=== PATIENT | female | born 1990 | race African-American/Black ===

== ENCOUNTER 2017-06-03 19:02 | Emergency (ER) | payer MEDICAID ==
[~2017-06-03] VITALS: Ht 167.6 cm; Wt 64.0 kg
[2017-06-03] MEDS ORDERED: ALBU2.5V13 IH (19:07)
[2017-06-03] MEDS ORDERED: IBUPROFEN 600MG TABLET PO STA (20:54)
[2017-06-03 22:58] VITALS: BP 105/73
== END 2017-06-03 23:20 | disposition home or self-care (01) ==
LOC: ER 19:36
DX: R06.09 Other forms of dyspnea (principal); S70.02XA Contusion of left hip, initial encounter; S70.01XA Contusion of right hip, initial encounter; J45.909 Unspecified asthma, uncomplicated; I45.10 Unspecified right bundle-branch block; F17.200 Nicotine dependence, unspecified, uncomplicated; X58.XXXA Exposure to other specified factors, initial encounter; Y92.89 Other specified places as the place of occurrence of the external cause
CPT/HCPCS: 71045; 72170; 93005; 99284; Z7610